=== PATIENT | female | born 1995 | race Caucasian/White ===

== ENCOUNTER 2019-04-02 10:46 | Outpatient (CLI) | payer OTHER ==
[2019-04-02 12:12] LABS: eGFR (Non-African) > 60
== END 2019-04-02 10:51 ==
LOC: LAB 10:46
PROVIDERS: ATTEND Family Medicine
DX: Z13.1 Encounter for screening for diabetes mellitus (principal); Z13.0 Encounter for screening for diseases of the blood and blood-forming organs and certain disorders involving the immune mechanism
CPT/HCPCS: 36415; 80053; 84443; 85027